=== PATIENT | male | born 1990 | race Two or more races ===

== ENCOUNTER 2020-12-03 22:01 | Emergency (ER) | payer SELFPAY ==
[~2020-12-03] VITALS: Ht 172.7 cm; Wt 80.7 kg
[2020-12-03 22:03] VITALS: BP 140/87
== END 2020-12-03 22:13 | disposition left against medical advice (07) ==
LOC: ER 22:09
DX: S89.91XA Unspecified injury of right lower leg, initial encounter (principal); Z53.21 Procedure and treatment not carried out due to patient leaving prior to being seen by health care provider; W55.12XA Struck by horse, initial encounter; Y93.89 Activity, other specified; Y92.89 Other specified places as the place of occurrence of the external cause; Y99.8 Other external cause status

== ENCOUNTER 2021-04-08 23:33 | Emergency (ER) | payer SELFPAY ==
[~2021-04-08] VITALS: Ht 175.3 cm; Wt 81.6 kg
[2021-04-08 23:34] VITALS: BP 106/68
== END 2021-04-09 00:42 | disposition left against medical advice (07) ==
LOC: ER 23:33
DX: R10.84 Generalized abdominal pain (principal); R11.2 Nausea with vomiting, unspecified; Z53.21 Procedure and treatment not carried out due to patient leaving prior to being seen by health care provider

== ENCOUNTER 2022-10-10 09:51 | Emergency (ER) | payer SELFPAY ==
[~2022-10-10] VITALS: Ht 175.3 cm; Wt 95.0 kg
[2022-10-10 10:26] VITALS: BP 132/85
[2022-10-10] MEDS ORDERED: IBUP600T28 PO (11:14)
[2022-10-10] MEDS ORDERED: CYCL-839 PO (11:14)
[2022-10-10] MEDS ORDERED: KETOROLAC TROMETH 30 MG/ML 1ML VIAL IM ONE (11:15)
== END 2022-10-10 11:29 | disposition home or self-care (01) ==
LOC: ER 09:51
DX: S86.912A Strain of unspecified muscle(s) and tendon(s) at lower leg level, left leg, initial encounter (principal); X58.XXXA Exposure to other specified factors, initial encounter; Y93.89 Activity, other specified; Y92.89 Other specified places as the place of occurrence of the external cause; Y99.8 Other external cause status
CPT/HCPCS: 73560; 96372; 99283; J1885

== ENCOUNTER 2022-12-02 01:55 | Emergency (ER) | payer SELFPAY ==
[~2022-12-02] VITALS: Ht 172.7 cm; Wt 79.5 kg
[~2022-12-02 01:55] MED LIST: CYCL-839 PO; IBUP600T28 PO
[2022-12-02] MEDS ORDERED: ONDANSETRON HCL 4 MG/2 ML VIAL IV ONE ×2 (02:30→05:45)
[2022-12-02] MEDS ORDERED: HYDROmorphone HCL 2 MG/ML VL/or syr IV ONE ×2 (02:30→05:45)
[2022-12-02] MEDS ORDERED: SODIUM CHLORIDE 0.9% 1,000 ML IV ONE (02:30)
[2022-12-02 02:40] LABS: Hemoglobin 10.6 g/dL (13.5-17.5); Red Cell Distribution Width 17.2 % (11.8-14.3)
[2022-12-02 02:42] LABS: Basophils # (auto) 0.1 10 ^3/uL (0-0.2); Basophils % (auto) 0.6 % (0.0-2.0); Eosinophils # (auto) 0 10 ^3/uL (0-0.8); Eosinophils % (auto) 0.1 % (0.0-7.0); Hematocrit 34.3 % (41.0-53.0); Lymphocytes # (auto) 0.8 10 ^3/uL (0.4-5.4); Lymphocytes % (auto) 6.5 % (10.0-50.0); Mean Corpuscular Hemoglobin 18.8 pg (28.0-32.0); Mean Corpuscular Hgb Conc. 30.9 g/dL (32.0-36.0); Mean Corpuscular Volume 60.8 fL (80.0-100.0); Monocytes # (auto) 0.5 10 ^3/uL (0-1.3); Neutrophils # (auto) 10.9 10 ^3/uL (1.6-8.6); Neutrophils % (auto) 88.8 % (37.0-80.0); Nucleated Red Blood Cells % 0.3 %; Red Blood Cells 5.64 10^6/uL (4.5-5.90); White Blood Cell 12.2 10^3/uL (4.4-10.8)
[2022-12-02 03:19] LABS: Albumin 4.4 g/dL (3.4-5.0); BUN/Creatinine Ratio 23.3; Calcium 9.5 mg/dL (8.5-10.1); Potassium 3.7 mmol/L (3.5-5.1)
[2022-12-02 03:22] LABS: Bilirubin, Total 0.7 mg/dL (0.2-1.0); Total Protein 8.6 g/dL (6.4-8.2)
[2022-12-02] MEDS ORDERED: cefTRIAXone 1GM/50ML D5W 50 ML IV ONE (06:30)
[2022-12-02] MEDS ORDERED: PERCOT PO (06:44)
[2022-12-02] MEDS ORDERED: ONDA-144 PO (06:44)
[2022-12-02] MEDS ORDERED: CIPR-173 PO (06:44)
[2022-12-02] MEDS ORDERED: chlordiazePOXIDE HCL 25 MG CAP PO ONE (06:45)
[2022-12-02 09:32] VITALS: BP 105/63
== END 2022-12-02 06:34 | disposition home or self-care (01) ==
LOC: ER 01:55
DX: K52.89 Other specified noninfective gastroenteritis and colitis (principal); F10.10 Alcohol abuse, uncomplicated
CPT/HCPCS: 36415; 70450; 71045; 74176; 80053; 83690; 85025; 93005; 96361; 96365; 96375; 96376; 99285; J0696; J1170; J2405; J7030

== ENCOUNTER 2022-12-17 00:59 | Emergency (ER) | payer SELFPAY ==
[~2022-12-17] VITALS: Ht 172.7 cm; Wt 79.5 kg
[~2022-12-17 00:59] MED LIST changes: +CIPR-173 PO; +ONDA-144 PO; +PERCOT PO
[2022-12-17 02:08] LABS: Basophils # (auto) 0.1 10 ^3/uL (0-0.2); Eosinophils # (auto) 0 10 ^3/uL (0-0.8); Eosinophils % (auto) 0.1 % (0.0-7.0); Mean Corpuscular Hemoglobin 18.4 pg (28.0-32.0); Monocytes # (auto) 0.2 10 ^3/uL (0-1.3)
[2022-12-17 02:09] LABS: Basophils % (auto) 0.5 % (0.0-2.0); Hematocrit 34.3 % (41.0-53.0); Hemoglobin 10.3 g/dL (13.5-17.5); Lymphocytes # (auto) 0.9 10 ^3/uL (0.4-5.4); Lymphocytes % (auto) 7.5 % (10.0-50.0); Mean Corpuscular Volume 61.4 fL (80.0-100.0); Monocytes % (auto) 1.8 % (0.0-12.0); Neutrophils # (auto) 10.4 10 ^3/uL (1.6-8.6); Neutrophils % (auto) 90.1 % (37.0-80.0); Red Blood Cells 5.59 10^6/uL (4.5-5.90); White Blood Cell 11.5 10^3/uL (4.4-10.8)
[2022-12-17 02:24] LABS: Albumin 4.4 g/dL (3.4-5.0); BUN/Creatinine Ratio 16.9 (10.0-20.0); Potassium 3.5 mmol/L (3.5-5.1)
[2022-12-17 02:27] LABS: Bilirubin, Total 0.6 mg/dL (0.2-1.0); Total Protein 8.4 g/dL (6.4-8.2)
[2022-12-17] MEDS ORDERED: SODIUM CHLORIDE 0.9% 1,000 ML IV ONE ×2 (02:30→05:45)
[2022-12-17] MEDS ORDERED: MAALOX PLUS or MAALOX 30 ML PO ONE (03:00)
[2022-12-17] MEDS ORDERED: PANTOPRAZOLE 40 MG/10 ML VIAL INJ IV ONE (03:00)
[2022-12-17] MEDS ORDERED: LIDOCAINE VISCOUS 2% 15ML UD PO ONE (03:00)
[2022-12-17] MEDS ORDERED: ONDANSETRON HCL 4 MG/2 ML VIAL IV ONE (04:15)
[2022-12-17] MEDS ORDERED: fentaNYL CITRATE 100 MCG/2 ML VL IV ONE (05:45)
[2022-12-17 06:46] VITALS: BP 108/66
[2022-12-17 08:19] LABS: Urine Amorphous Crystal MANY /hpf (None Seen); Urine Bacteria NONE SEEN /hpf (None Seen); Urine Blood Negative /uL (Negative); Urine Mucus FEW (None Seen); Urine Specific Gravity 1.025 (1.001-1.035); Urine WBC 1 /hpf (0 - 3)
== END 2022-12-17 07:43 | disposition left against medical advice (07) ==
LOC: ER 00:59
DX: R10.13 Epigastric pain (principal); F10.10 Alcohol abuse, uncomplicated; K29.70 Gastritis, unspecified, without bleeding; D64.9 Anemia, unspecified; Z53.29 Procedure and treatment not carried out because of patient's decision for other reasons
CPT/HCPCS: 36415; 74176; 80053; 81001; 83690; 85025; 96361; 96374; 96375; 99285; C9113; J2405; J3010; J7030

== ENCOUNTER 2023-08-08 13:46 | Emergency (ER) | payer SELFPAY ==
[~2023-08-08] VITALS: Ht 175.3 cm; Wt 78.0 kg
[~2023-08-08 13:46] MED LIST changes: +IBUP1TAB5 PO; -IBUP600T28 PO
[2023-08-08 14:33] VITALS: BP 119/80; PULSE 85; RESP 18; O2SAT 99
[2023-08-08] MEDS ORDERED: KETOROLAC TROMETH 30 MG/ML 1ML VIAL IV ONE (15:15)
[2023-08-08] MEDS ORDERED: SODIUM CHLORIDE 0.9% 1,000 ML IV ONE (15:30)
[2023-08-08] MEDS ORDERED: ONDANSETRON HCL 4 MG/2 ML VIAL IV ONE (15:30)
[2023-08-08 15:35] LABS: Eosinophils # (auto) 0.2 10 ^3/uL (0-0.8); Lymphocytes # (auto) 1.3 10 ^3/uL (0.4-5.4); Mean Corpuscular Hemoglobin 19.8 pg (28.0-32.0); Monocytes # (auto) 0.5 10 ^3/uL (0-1.3)
[2023-08-08 15:37] LABS: Basophils # (auto) 0 10 ^3/uL (0-0.2); Basophils % (auto) 0.7 % (0.0-2.0); Eosinophils % (auto) 3.1 % (0.0-7.0); Hemoglobin 10.3 g/dL (13.5-17.5); Lymphocytes % (auto) 21.8 % (10.0-50.0); Mean Corpuscular Hgb Conc. 30.4 g/dL (32.0-36.0); Mean Corpuscular Volume 65.1 fL (80.0-100.0); Monocytes % (auto) 8.5 % (0.0-12.0); Neutrophils % (auto) 65.9 % (37.0-80.0); Red Blood Cells 5.23 10^6/uL (4.5-5.90); Red Cell Distribution Width 16.8 % (11.8-14.3)
[2023-08-08 15:54] LABS: Albumin 3.6 g/dL (3.2-4.8); Alkaline Phosphatase 63 U/L (46-116); Anion Gap 9 (5-15); Aspartate Aminotransferase 9 U/L (13-40); BUN/Creatinine Ratio 18.7 (10.0-20.0); Bilirubin, Total 0.3 mg/dL (0.2-1.0); Blood Urea Nitrogen 14 mg/dL (9-23); Calcium 6.9 mg/dL (8.5-10.1); Carbon Dioxide 25 mmol/L (20-30); Chloride 105 mmol/L (98-107); Glucose 70 mg/dL (74-106); Potassium 4.2 mmol/L (3.5-5.1); Sodium 139 mmol/L (136-145); Total Protein 5.4 g/dL (5.7-8.2)
[2023-08-08 16:00] LABS: Alanine Aminotransferase 9 U/L (7-40)
[2023-08-08 16:02] LABS: Urine Bacteria NONE SEEN /hpf (None Seen); Urine Blood Negative /uL (Negative); Urine Clarity Clear (Clear); Urine Color Colorless (Yellow); Urine Protein, UAD TRACE (Negative); Urine Specific Gravity 1.023 (1.001-1.035); Urine Urobilinogen Normal (Negative); Urine WBC <1 /hpf (0 - 3)
[2023-08-08 16:25] LABS: Lipase 39 U/L (12-53)
== END 2023-08-08 16:47 | disposition left against medical advice (07) ==
LOC: ER 13:46
DX: M54.9 Dorsalgia, unspecified (principal); F10.90 Alcohol use, unspecified, uncomplicated; F15.90 Other stimulant use, unspecified, uncomplicated; Z79.899 Other long term (current) drug therapy; Y90.0 Blood alcohol level of less than 20 mg/100 ml
CPT/HCPCS: 36415; 74176; 80053; 81001; 83690; 85025

== ENCOUNTER 2024-09-27 02:58 | Emergency (ER) | payer MEDICAID, OTHER ==
[~2024-09-27] VITALS: Ht 175.3 cm; Wt 80.0 kg
[2024-09-27] MEDS ORDERED: KETO10TA PO (05:14)
[2024-09-27] MEDS ORDERED: AUG875T PO (05:14)
--- NOTE | 2024-09-27 05:14 | ED.PDOC ---
Eye-HPI Chief Complaint: Tooth Pain Time Seen by MD: 03:34 Primary Care Provider: NONE Reviewed Notes: Nurses Notes, Medications, Allergies Allergies: Coded Allergies: No Known Drug Allergy (Verified Allergy, Unknown, 10/10/22) Home Meds Active Scripts Ondansetron (Zofran) 4 Mg Tab, 4 MG PO BID for 7 Days, #14 MG Prov:CHRISTIAN HOOKER MD 12/02/22 Oxycodone W/ Acetaminophen (Percocet 5/325MG) 1 Tab Tb, 1 TAB PO BID for 7 Days, #14 TAB Prov:CHRISTIAN HOOKER MD 12/02/22 Ciprofloxacin Hcl (Cipro) 500 Mg Tab, 1 TAB PO BID for 7 Days, #14 TAB Prov:CHRISTIAN HOOKER MD 12/02/22 Cyclobenzaprine Hcl (Cyclobenzaprine Hcl) 10 Mg Tab, 10 MG PO TID, #10 TAB 0 Refills Prov:SHERIF EASTMAN [facility] 10/10/22 Ibuprofen Micronized (Ibuprofen) 600 Mg Tab, 600 MG PO Q8HPRN PRN, #30 TAB 0 Refills Prov:SHERIF EASTMAN [facility] 10/10/22 Information Source: Patient Mode of Arrival: Ambulatory Past Medical History PAST MEDICAL HISTORY: Denies Surgical History: Denies all surgeries Family History Family History: Reviewed,noncontributory to illness Social History Smoker: Non-Smoker Alcohol: Heavy Drugs: Marijuana Lives In: Home X-Ray, Labs, Meds, VS Vital Signs Date Time Temp Pulse Resp B/P (MAP) Pulse Ox O2 Delivery O2 Flow Rate FiO2 09/27/24 03:22 99.5 80 16 118/70 (86) 99 Departure 1 Departure Impression: Primary Impression: Dental infection Disposition: 01 HOME / SELF CARE / HOMELESS e-Prescriptions Ketorolac Tromethamine (Ketorolac Tromethamine) 10 Mg Tab 1 TAB PO TID PRN for 3 Days, #9 TAB Prov: SOM PENA 09/27/24 Amoxicillin & Pot Clavulanate (AUGMENTIN TABLET) 875 Mg Tb 1 TAB PO BID for 7 Days, #14 TAB Prov: SOM PENA 09/27/24 Discharged With: Significant Other Critical Care Note Critical Care Time?: No Stability Stability form required: No SOM PENA Sep 27, 2024 05:14
[2024-09-27] MEDS: HYDROcodone-ACET 5/325MG TAB PO ONE (05:25)
[2024-09-27] MEDS: KETOROLAC TROMETH 60MG/2ML VIAL IM ONE (05:26)
[2024-09-27] MEDS: cefTRIAXone SOD 1,000 MG VL IM ONE (05:26)
[2024-09-27 05:54] VITALS: BP 137/78; PULSE 74; RESP 16; O2SAT 100
[2024-09-27] MEDS ORDERED: CHL12OR MT (05:57)
== END 2024-09-27 06:00 | disposition home or self-care (01) ==
LOC: ER 02:58
DX: K04.7 Periapical abscess without sinus (principal); Z79.899 Other long term (current) drug therapy
CPT/HCPCS: 96372; 99284; J0696; J1885